=== PATIENT | female | born 1945 | race Hispanic/Latino ===

== ENCOUNTER 2019-06-24 19:21 | Emergency (ER) | payer OTHER ==
[2019-06-24] MEDS ORDERED: FENTANYL CITR 100 MCG/2 ML ONE (21:46)
[2019-06-24] MEDS ORDERED: NA CHLORIDE 0.9% 1,000 ML ONE (21:47)
[2019-06-24] MEDS ORDERED: PIPER/TAZO/NS 3.375gm 3.375 GM/100 ML BAG ONE (21:47)
[2019-06-24 21:50] LABS: Absolute Lymphocytes (CBC) 1.7 K/uL (0.7-4.9); Basophils % 0.7 % (0-1.3); Hematocrit 32.6 % (36.0-45.0); Lymphocytes % 20.3 % (15.3-44.8); MPV 7.3 fL (7.6-11.3); RBC Red Blood Cell Count 3.64 M/uL (3.86-4.86)
[2019-06-24 22:07] LABS: Potassium 4.3 mmol/L (3.5-5.1)
--- NOTE | 2019-06-25 01:00 | EDPHYS ---
Physician Documentation [facility] Name: Maya Burton Age: 73 yrs Sex: Female : 1945 Arrival Date: 06/24/2019 Time: 19:26 Bed 16 Private MD: EDUARDO Physician Alexx Schwarz HPI: 06/24 22:10 This 73 yrs old Female presents to ER via Ambulatory with complaints of Vaginal Pain. snw 22:10 The patient presents with pelvic pain, that is located in/on the left labia majora, the snw pain radiates to the pelvis, the pain is described as constant. Onset: The symptoms/episode began/occurred suddenly, 2 day(s) ago, and became persistent. Associated signs and symptoms: The patient has no apparent associated signs or symptoms. Severity of symptoms: At their worst the symptoms were moderate. The patient is not sexually active. The patient has experienced a previous episode. It is unknown whether or not the patient has recently seen a physician. +home health. Historical: - Allergies: 19:38 Codeine; iw - Home Meds: 19:42 Jardiance 25 mg oral tab 1 tab once daily [Active]; hydralazine 100 mg Oral tab 1 tab 2 iw times per day [Active]; montelukast 10 mg oral tab 1 tab once daily [Active]; omeprazole 20 mg Oral cpDR 1 cap once daily [Active]; albuterol sulfate 90 mcg/actuation Inhl HFAA 1 puff every 4-6 hours [Active]; aspirin 81 mg Oral TbEC 1 tab once daily [Active]; atorvastatin 20 mg oral tab 1 tab once daily [Active]; carvedilol 6.25 mg oral tab 1 tab 2 times per day [Active]; duloxetine 60 mg oral cpDR 1 cap once daily [Active]; - PMHx: 19:42 Diabetes - NIDDM; Hypertension; iw - PSHx: 19:42 whipple procedure; iw 19:42 Cholecystectomy; Hysterectomy; Carpal Tunnel Repair; Knee surgery; eye; nasal; iw - Immunization history:: Adult Immunizations up to date. - Social history:: Smoking status: Patient/guardian denies using tobacco. - Ebola Screening: : Patient negative for fever greater than or equal to 101.5 degrees Fahrenheit, and additional compatible Ebola Virus Disease symptoms Patient denies exposure to infectious person Patient denies travel to an Ebola-affected area in the 21 days before illness onset No symptoms or risks identified at this time. ROS: 22:08 Constitutional: Negative for fever, chills, and weight loss, Eyes: Negative for injury, snw pain, redness, and discharge, ENT: Negative for injury, pain, and discharge, Neck: Negative for injury, pain, and swelling, Cardiovascular: Negative for chest pain, palpitations, and edema, Respiratory: Negative for shortness of breath, cough, wheezing, and pleuritic chest pain, Abdomen/GI: Negative for abdominal pain, nausea, vomiting, diarrhea, and constipation, Back: Negative for injury and pain, MS/Extremity: Negative for injury and deformity, Skin: Negative for injury, rash, and discoloration, Neuro: Negative for headache, weakness, numbness, tingling, and seizure. 22:08 : Positive for of the left labia majora. Exam: 22:08 Constitutional: This is a well developed, well nourished patient who is awake, alert, snw and in no acute distress. Head/Face: Normocephalic, atraumatic. Eyes: Pupils equal round and reactive to light, extra-ocular motions intact. Lids and lashes normal. Conjunctiva and sclera are non-icteric and not injected. Cornea within normal limits. Periorbital areas with no swelling, redness, or edema. ENT: Nares patent. No nasal discharge, no septal abnormalities noted. Tympanic membranes are normal and external auditory canals are clear. Oropharynx with no redness, swelling, or masses, exudates, or evidence of obstruction, uvula midline. Mucous membranes moist. Neck: Trachea midline, no thyromegaly or masses palpated, and no cervical lymphadenopathy. Supple, full range of motion without nuchal rigidity, or vertebral point tenderness. No Meningismus. Chest/axilla: Normal chest wall appearance and motion. Nontender with no deformity. No lesions are appreciated. Cardiovascular: Regular rate and rhythm with a normal S1 and S2. No gallops, murmurs, or rubs. Normal PMI, no JVD. No pulse deficits. Respiratory: Lungs have equal breath sounds bilaterally, clear to auscultation and percussion. No rales, rhonchi or wheezes noted. No increased work of breathing, no retractions or nasal flaring. Abdomen/GI: Soft, non-tender, with normal bowel sounds. No distension or tympany. No guarding or rebound. No evidence of tenderness throughout. Back: No spinal tenderness. No costovertebral tenderness. Full range of motion. Female : Normal external genitalia. Left labia with edema, tenderness, mild ulceration to area adhered to brief Skin: Warm, dry with normal turgor. Normal color with no rashes, no lesions, and no evidence of cellulitis. MS/ Extremity: Pulses equal, no cyanosis. Neurovascular intact. Full, normal range of motion. Neuro: Awake and alert, GCS 15, oriented to person, place, time, and situation. Cranial nerves II-XII grossly intact. Motor strength 5/5 in all extremities. Sensory grossly intact. Cerebellar exam normal. Normal gait. Psych: Awake, alert, with orientation to person, place and time. Behavior, mood, and affect are within normal limits. Vital Signs: 19:38 BP 151 / 80; Pulse 86; Resp 16; Temp 99.6; Pulse Ox 98% on R/A; Weight 66.22 kg; Height iw 5 ft. 2 in. (157.48 cm); Pain 8/10; 20:45 BP 148 / 70; Pulse 82; Resp 16; Pulse Ox 100% on R/A; jb4 22:00 BP 172 / 83; Pulse 81; Resp 16; Pulse Ox 98% on R/A; jb4 23:00 BP 141 / 64; Pulse 77; Resp 16; Pulse Ox 99% on R/A; jb4 06/25 00:15 BP 137 / 75; Pulse 70; Resp 16; Pulse Ox 96% on R/A; jb4 00:45 BP 149 / 82; Pulse 78; Resp 16; Pulse Ox 100% on R/A; jb4 06/24 19:38 Body Mass Index 26.70 (66.22 kg, 157.48 cm) iw MDM: 06/24 21:18 Patient medically screened. snw 06/25 00:59 Data reviewed: vital signs, nurses notes. Data interpreted: Pulse oximetry: on room air snw is 96 %. Interpretation: acceptable. Counseling: I had a detailed discussion with the patient and/or guardian regarding: the historical points, exam findings, and any diagnostic results supporting the discharge/admit diagnosis, lab results, radiology results, the need for outpatient follow up, to return to the emergency department if symptoms worsen or persist or if there are any questions or concerns that arise at home. Special discussion: Based on the history and exam findings, there is no indication for further emergent testing or inpatient evaluation. I discussed with the patient/guardian the need to see the OB Gyne specialist for further evaluation of the symptoms. I discussed with the patient/guardian the need to see the primary care provider for further evaluation of the symptoms. 06/24 21:18 Order name: CBC with Diff; Complete Time: 21:56 snw 06/24 21:18 Order name: Chem 7; Complete Time: 22:14 snw 06/24 21:18 Order name: Blood Culture Adult (2) snw 06/24 21:18 Order name: CT Pelvis w cont snw 06/24 21:49 Order name: Glucose, Ancillary Testing; Complete Time: 21:56 EDMS 06/24 21:18 Order name: FSBS; Complete Time: 21:48 snw Administered Medications: 06/24 22:00 Drug: fentaNYL (PF) 25 mcg {Note: Rass score 0.} Route: IVP; Site: left antecubital; [facility] 22:30 Follow up: Response: No adverse reaction; Pain is decreased; RASS: Alert and Calm (0) [facility] 22:02 Drug: NS 0.9% 1000 ml Route: IV; Rate: 125 ml/hr; Site: left antecubital; 4 06/25 01:22 Follow up: Response: No adverse reaction; IV Status: Order to discontinue infusion [facility] 06/24 22:02 Drug: Zosyn 3.375 grams Route: IVPB; Infused Over: 60 mins; Site: left antecubital; [facility] 23:24 Follow up: Response: No adverse reaction; IV Status: Completed infusion [facility] Disposition: 06/25 04:19 Co-signature as Attending Physician, Alexx Schwarz MD I agree with the assessment and [facility] plan of care. Disposition: 06/25/19 00:57 Discharged to Home. Impression: Left labial abscess. - Condition is Stable. - Discharge Instructions: Skin Abscess, How to Take a Sitz Bath. - Prescriptions for Clindamycin HCl 300 mg Oral Capsule - take 1 capsule by ORAL route every 6 hours for 10 days; 40 capsule. Mobic 7.5 mg Oral Tablet - take 1 tablet by ORAL route once daily take with food; 20 tablet. - Medication Reconciliation Form, Thank You Letter, Antibiotic Education, Prescription Opioid Use form. - Follow up: Private Physician; When: 1 - 2 days; Reason: Recheck today's complaints, Continuance of care, Re-evaluation by your physician. Follow up: Emergency Department; When: As needed; Reason: Worsening of condition. Signatures: Dispatcher [employer] EDMA Echo Schaffer, CHARISMA-C MEDIA PRODUCTION SUPPORT MANAGER-Csnw Jessica Murray, RN RN iw Emanuel Solano RN RN jb4 Alexx Schwarz MD MD tw4 Corrections: (The following items were deleted from the chart) 01:26 00:57 06/25/2019 00:57 Discharged to Home. Impression: Left labial abscess. Condition jb4 is Stable. Forms are Medication Reconciliation Form, Thank You Letter, Antibiotic Education, Prescription Opioid Use. Follow up: Private Physician; When: 1 - 2 days; Reason: Recheck today's complaints, Continuance of care, Re-evaluation by your physician. Follow up: Emergency Department; When: As needed; Reason: Worsening of condition. snw
--- NOTE | 2019-06-25 01:00 | ER ---
Nurse's Notes [facility] Name: Maya Burton Age: 73 yrs Sex: Female : 1945 Arrival Date: 06/24/2019 Time: 19:26 Bed 16 Private MD: Diagnosis: Left labial abscess Presentation: 06/24 19:35 Presenting complaint: Patient states: abscess to genital area, hx of abscesses, started iw this week, no fever, +chills, is not from area and does not have a doctor yet, hx of diabetes. Transition of care: patient was not received from another setting of care. Onset of symptoms was June 21, 2019. Risk Assessment: Do you want to hurt yourself or someone else? Patient reports no desire to harm self or others. Initial Sepsis Screen: Does the patient meet any 2 criteria? No. Patient's initial sepsis screen is negative. Does the patient have a suspected source of infection? No. Patient's initial sepsis screen is negative. Care prior to arrival: None. 19:35 Method Of Arrival: Ambulatory iw 19:35 Acuity: EDGARDO 3 iw Historical: - Allergies: 19:38 Codeine; iw - Home Meds: 19:42 Jardiance 25 mg oral tab 1 tab once daily [Active]; hydralazine 100 mg Oral tab 1 tab 2 iw times per day [Active]; montelukast 10 mg oral tab 1 tab once daily [Active]; omeprazole 20 mg Oral cpDR 1 cap once daily [Active]; albuterol sulfate 90 mcg/actuation Inhl HFAA 1 puff every 4-6 hours [Active]; aspirin 81 mg Oral TbEC 1 tab once daily [Active]; atorvastatin 20 mg oral tab 1 tab once daily [Active]; carvedilol 6.25 mg oral tab 1 tab 2 times per day [Active]; duloxetine 60 mg oral cpDR 1 cap once daily [Active]; - PMHx: 19:42 Diabetes - NIDDM; Hypertension; iw - PSHx: 19:42 whipple procedure; iw 19:42 Cholecystectomy; Hysterectomy; Carpal Tunnel Repair; Knee surgery; eye; nasal; iw - Immunization history:: Adult Immunizations up to date. - Social history:: Smoking status: Patient/guardian denies using tobacco. - Ebola Screening: : Patient negative for fever greater than or equal to 101.5 degrees Fahrenheit, and additional compatible Ebola Virus Disease symptoms Patient denies exposure to infectious person Patient denies travel to an Ebola-affected area in the 21 days before illness onset No symptoms or risks identified at this time. Screenin:50 Abuse screen: Denies threats or abuse. Nutritional screening: No deficits noted. jb4 Tuberculosis screening: No symptoms or risk factors identified. Fall Risk None identified. Assessment: 19:50 General: Appears in no apparent distress. comfortable, Behavior is calm, cooperative, jb4 appropriate for age. Pain: Complains of pain in groin Pain does not radiate. Pain currently is 6 out of 10 on a pain scale. at worst was 10 out of 10 on a pain scale. Neuro: Level of Consciousness is awake, alert, obeys commands, Oriented to person, place, time, situation. Cardiovascular: Patient's skin is warm and dry. Respiratory: Airway is patent Respiratory effort is even, unlabored, Respiratory pattern is regular, symmetrical. GI: No signs and/or symptoms were reported involving the gastrointestinal system. : Reports Having a boil on her labia. EENT: No signs and/or symptoms were reported regarding the EENT system. Derm: Skin is intact, Skin is pink, warm \T\ dry. Musculoskeletal: Circulation, motion, and sensation intact. Range of motion: intact in all extremities. 20:56 Reassessment: Patient appears in no apparent distress at this time. Patient and/or jb4 family updated on plan of care and expected duration. Pain level reassessed. Patient is alert, oriented x 3, equal unlabored respirations, skin warm/dry/pink. 22:12 Reassessment: Patient appears in no apparent distress at this time. Patient and/or jb4 family updated on plan of care and expected duration. Pain level reassessed. Patient is alert, oriented x 3, equal unlabored respirations, skin warm/dry/pink. Patient states feeling better. 23:00 Reassessment: Patient appears in no apparent distress at this time. Patient and/or jb4 family updated on plan of care and expected duration. Pain level reassessed. Patient is alert, oriented x 3, equal unlabored respirations, skin warm/dry/pink. Patient states feeling better. 06/25 00:00 Reassessment: Patient appears in no apparent distress at this time. Patient and/or jb4 family updated on plan of care and expected duration. Pain level reassessed. Patient is alert, oriented x 3, equal unlabored respirations, skin warm/dry/pink. 01:21 Reassessment: Patient appears in no apparent distress at this time. Patient and/or jb4 family updated on plan of care and expected duration. Pain level reassessed. Patient is alert, oriented x 3, equal unlabored respirations, skin warm/dry/pink. Vital Signs: 06/24 19:38 BP 151 / 80; Pulse 86; Resp 16; Temp 99.6; Pulse Ox 98% on R/A; Weight 66.22 kg; Height iw 5 ft. 2 in. (157.48 cm); Pain 8/10; 20:45 BP 148 / 70; Pulse 82; Resp 16; Pulse Ox 100% on R/A; jb4 22:00 BP 172 / 83; Pulse 81; Resp 16; Pulse Ox 98% on R/A; jb4 23:00 BP 141 / 64; Pulse 77; Resp 16; Pulse Ox 99% on R/A; jb4 06/25 00:15 BP 137 / 75; Pulse 70; Resp 16; Pulse Ox 96% on R/A; jb4 00:45 BP 149 / 82; Pulse 78; Resp 16; Pulse Ox 100% on R/A; jb4 06/24 19:38 Body Mass Index 26.70 (66.22 kg, 157.48 cm) iw ED Course: 06/24 19:26 Patient arrived in ED. ag3 19:37 Triage completed. iw 19:38 Arm band placed on. iw 19:44 Emanuel Solano, RN is Primary Nurse. jb4 19:50 Patient has correct armband on for positive identification. Bed in low position. Call jb4 light in reach. Side rails up X 1. Pulse ox on. NIBP on. 19:54 Echo Schaffer FNP-C is PHCP. snw 19:54 Alexx Schwarz MD is Attending Physician. snw 21:40 Initial lab(s) drawn, by me, sent to lab. First set of blood cultures drawn by me. jd2 21:52 Inserted saline lock: 20 gauge in left antecubital area, using aseptic technique. Blood jd2 collected. 22:32 CT Pelvis w cont In Process Unspecified. EDMS 06/25 01:21 No provider procedures requiring assistance completed. IV discontinued, intact, jb4 bleeding controlled, No redness/swelling at site. Pressure dressing applied. Administered Medications: 06/24 22:00 Drug: fentaNYL (PF) 25 mcg {Note: Rass score 0.} Route: IVP; Site: left antecubital; jb4 22:30 Follow up: Response: No adverse reaction; Pain is decreased; RASS: Alert and Calm (0) jb 22:02 Drug: NS 0.9% 1000 ml Route: IV; Rate: 125 ml/hr; Site: left antecubital; jb4 06/25 01:22 Follow up: Response: No adverse reaction; IV Status: Order to discontinue infusion jb4 06/24 22:02 Drug: Zosyn 3.375 grams Route: IVPB; Infused Over: 60 mins; Site: left antecubital; jb4 23:24 Follow up: Response: No adverse reaction; IV Status: Completed infusion jb4 Outcome: 06/25 00:57 Discharge ordered by . conrad 01:21 Discharged to home ambulatory, with family. jb4 01:21 Condition: stable 01:21 Discharge instructions given to patient, family, Instructed on discharge instructions, follow up and referral plans. medication usage, Demonstrated understanding of instructions, follow-up care, medications, Prescriptions given X 2. 01:26 Patient left the ED. jb4 Signatures: Dispatcher [employer] EDVA Echo Schaffer, BLENDER OPERATOR-C BLENDER OPERATOR-Csnw Jessica Murray RN RN iw Donley, Jonika jd2 Bryson, James, RN RN jb4 Ella Arriola ag3
[2019-06-25 03:14] VITALS: TEMP 99.6
[2019-06-25 03:21] VITALS: BP 149/82; O2SAT 100
--- NOTE | 2019-06-25 10:08 | RAD REPORT ---
EXAM DESCRIPTION: CT - Pelvis W/Cont - 06/25/2019 7:07 am CLINICAL HISTORY: Abscess TECHNIQUE: Contiguous axial images obtained through the pelvis following the uneventful administrati on of IV contrast. Sagittal and coronal reformatted images were provided. This exam was performed according to our departmental dose-optimization program, which includes autom ated exposure control, adjustment of the mA and/or kV according to patient size and/or use of iterati ve reconstruction technique. COMPARISON: None available for comparison. FINDINGS: Bowel: No obstruction. No appreciable mucosal thickening. Appendix: Normal caliber appendix. No findings to suggest acute appendicitis. Urinary bladder: Unremarkable Reproductive: There has been a hysterectomy. No adnexal cysts or masses are identified. Lymph nodes: Mildly enlarged left inguinal lymph nodes measuring up to 15 mm in short axis. Peritoneum: No focal fluid collection. No free air. Localized area of omental fat with peripheral sof t tissue density rim at the right paracentral anterior lower abdomen measuring approximately 4.9 x 1. 9 x 1.9 cm suggestive of prior omental infarct. Vessels: Mild to moderate atherosclerotic disease. No distal abdominal aortic aneurysm. Abdominal wall: Moderate infiltrative changes along the left aspect of the mons pubis and left labia majora. Focal skin ulceration along the posterior inferior aspect of the labia majora. Subjacent dirk pherally enhancing collection measuring approximately 1.7 x 0.8 x 1.2 cm (series 201 image 52 and ser ies 202 image 92). Tiny fat-containing umbilical hernia. Small bilateral fat-containing inguinal suzy ias, right greater than left. Bones: Multilevel spondylosis. No acute fracture. IMPRESSION: 1. Moderate infiltrative changes along the left aspect of the mons pubis and left labi a majora. Focal skin ulceration along the posterior inferior aspect of the labia majora with subjacen t abscess measuring approximately 1.7 x 0.8 x 1.2 cm. 2. Other findings as above. Electronically signed by: Mayelin Armstrong MD 06/24/2019 11:21 PM PLUCK SEPARATOR Due to temporary technical issues with the PACS/Fluency reporting system, reports are being signed by the in house radiologist as a courtesy to ensure prompt reporting. The interpreting radiologist is f ully responsible for the content of the report.
== END 2019-06-25 01:26 | disposition home or self-care (01) ==
LOC: ER 19:21
DX: N76.4 Abscess of vulva (principal); I10 Essential (primary) hypertension; E11.9 Type 2 diabetes mellitus without complications; Z79.82 Long term (current) use of aspirin; Z88.5 Allergy status to narcotic agent
CPT/HCPCS: 96365; 96361; 87040 ×2; 85025; 80048; 36415; 82947; 72193; 96375; 99284; Q9967; J3010; J2543; J7030